=== PATIENT | female | born 1980 | race Caucasian/White ===

== ENCOUNTER 2017-04-01 07:31 | Emergency (ER) | payer OTHER ==
[~2017-04-01 07:31] MED LIST: ALBUTEROL17 GM INH; PROCARDIA XL PO
== END 2017-04-01 08:23 | disposition home or self-care (01) ==
LOC: CED 07:31
DX: J02.0 Streptococcal pharyngitis (principal); I10 Essential (primary) hypertension; F17.210 Nicotine dependence, cigarettes, uncomplicated; Z88.8 Allergy status to other drugs, medicaments and biological substances
CPT/HCPCS: 87880; 94640; 96372; 99283; J0561; J1100

== ENCOUNTER 2017-06-18 05:37 | Emergency (ER) | payer OTHER ==
[~2017-06-18] VITALS: Ht 162.6 cm; Wt 113.4 kg
[2017-06-18 06:18] LABS: INFLUENZA A NEG (NEG); INFLUENZA B NEG (NEG)
== END 2017-06-18 07:18 | disposition home or self-care (01) ==
LOC: CED 05:37
PROVIDERS: Emergency Medicine
DX: J02.0 Streptococcal pharyngitis (principal); I10 Essential (primary) hypertension
CPT/HCPCS: 87804; 87880; 96372; 99283; J0561